=== PATIENT | female | born 1980 | race Caucasian/White ===

== ENCOUNTER 2020-01-13 11:02 | Outpatient (CLI) | payer OTHER, SELFPAY ==
[2020-01-13 22:40] LABS: SARS-CoV-2 RNA PCR Negative
== END 2020-01-13 11:03 | disposition home or self-care (01) ==
PROVIDERS: PCP Family Medicine Sports Medicine; Visit Provider Family Medicine Sports Medicine
DX: Z20.828 Contact with and (suspected) exposure to other viral communicable diseases (principal)
CPT/HCPCS: 87635; C9803; U0003